=== PATIENT | male | born 1950 | race Caucasian/White ===

== ENCOUNTER 2020-02-03 11:38 | Outpatient (CLI) | payer MEDICARE ==
--- NOTE | 2020-02-03 11:58 | RAD ---
EXAM: Chest PA and lateral: HISTORY: Bronchitis COMPARISON: None FINDINGS: Heart: Normal cardiac silhouette Aorta: Unremarkable Pulmonary vessels: Normal Costophrenic angles: Costophrenic angles are clear. Lungs: No consolidation or masses. Lungs are hyperinflated. Pneumothorax: No pneumothorax Osseous structures: No osseous abnormalities IMPRESSION: No acute cardiopulmonary process.
== END 2020-02-03 11:39 | disposition home or self-care (01) ==
LOC: BURRAD 11:38
PROVIDERS: ATTEND Family Medicine
DX: J40 Bronchitis, not specified as acute or chronic (principal)
CPT/HCPCS: 71046